=== PATIENT | female | born 1950 | race Caucasian/White ===

== ENCOUNTER → 2016-09-19 | Outpatient (CLI) | payer BC, MEDICARE | LOC: MC.RAD 08:14 | DX: Z12.31 Encounter for screening mammogram for malignant neoplasm of breast (principal) ==

== ENCOUNTER → 2019-08-01 | Outpatient (CLI) | payer BC | LOC: MC.RAD 16:21 | DX: Z12.31 Encounter for screening mammogram for malignant neoplasm of breast (principal) ==

== ENCOUNTER → 2021-02-01 | Outpatient (CLI) | payer BC | LOC: MC.RAD 12:05 | DX: Z12.31 Encounter for screening mammogram for malignant neoplasm of breast (principal) ==

== ENCOUNTER → 2022-08-03 | Outpatient (CLI) | payer BC ==
[~2022-08-03] MED LIST: FEOSOL45 MG PO; FOSAMAX 70MG TA70 MG PO; GLEEVEC400 MG PO; K-TAB10 PO; LASIX 20MG TABL20 MG PO; LIPITOR20 MG PO; PEPCID40 MG PO; PRINZIDE 12.5 M1 TA1 PO; VITAMIN C500 MG PO; ZOFRAN8 MG PO
== END ==
LOC: MC.RAD 14:29
DX: Z12.31 Encounter for screening mammogram for malignant neoplasm of breast (principal)

== ENCOUNTER → 2023-01-29 | Outpatient (CLI) | payer BC | LOC: COL.RAD 13:27 | DX: C49.A3 Gastrointestinal stromal tumor of small intestine (principal); R91.8 Other nonspecific abnormal finding of lung field; C78.6 Secondary malignant neoplasm of retroperitoneum and peritoneum | CPT/HCPCS: Q9967 ==

== ENCOUNTER → 2023-09-18 | Outpatient (CLI) | payer MEDICARE, OTHER | LOC: COL.VAS 12:30 | DX: C49.A3 Gastrointestinal stromal tumor of small intestine (principal); I51.7 Cardiomegaly; I34.0 Nonrheumatic mitral (valve) insufficiency ==

== ENCOUNTER 2023-10-03 13:51 | Outpatient (CLI) | payer MEDICARE, OTHER ==
[~2023-10-03] VITALS: Ht 149.9 cm; Wt 53.7 kg
[2023-10-03] MEDS ORDERED: Denosumab 60 MG/ML SYRINGE SQ ONE (14:15)
[2023-10-03] MEDS ORDERED: DESYREL 50MG50 MG PO (16:09)
[2023-10-03] MEDS ORDERED: SUTENT37.5 MG PO (16:09)
[2023-10-03] MEDS ORDERED: PROLIA60 MG/ML SQ (16:10)
[2023-10-03 16:18] VITALS: BP 155/75; PULSE 56; TEMP 98.1
== END 2023-10-03 15:40 | disposition home or self-care (01) ==
LOC: EUO 13:51
DX: M81.0 Age-related osteoporosis without current pathological fracture (principal)
CPT/HCPCS: J0897

== ENCOUNTER → 2023-10-26 | Outpatient (CLI) | payer MEDICARE ==
[~2023-10-26] MED LIST changes: +DESYREL 50MG50 MG PO; +PROLIA60 MG/ML SQ; +SUTENT37.5 MG PO
== END ==
LOC: MC.RAD 10:51
DX: Z12.31 Encounter for screening mammogram for malignant neoplasm of breast (principal)

== ENCOUNTER → 2023-12-12 | Outpatient (CLI) | payer MEDICARE ==
[~2023-12-12] MED LIST changes: +Iohexol 300 - 100 ML VIAL IV ONE; +NS 100 ML IV SCH
== END ==
LOC: COL.RAD 08:52
DX: C49.A3 Gastrointestinal stromal tumor of small intestine (principal); K44.9 Diaphragmatic hernia without obstruction or gangrene; C78.6 Secondary malignant neoplasm of retroperitoneum and peritoneum; R91.1 Solitary pulmonary nodule
CPT/HCPCS: Q9967